=== PATIENT | female | born 1990 | race Caucasian/White ===

== ENCOUNTER 2023-09-22 22:23 | Emergency (ER) | payer OTHER, SELFPAY ==
[2023-09-22 22:28] VITALS: BP 139/95; PULSE 73; RESP 18; TEMP 36.5; O2SAT 96; BMI 27.0
--- NOTE | 2023-09-22 22:35 | ECG_ITS ---
The [facility] Test Date: 2023-09-22 Pat Name: MATTHEW LUNA Department: Room: - Gender: Female [employer]: : 1990 Requested By: Order Number: [id number] Reading MD: LAQUITA ALMANZA Measurements Intervals [place] Rate: 82 P: 70 FL: 170 QRS: 95 QRSD: 102 T: 61 QT: 376 QTc: 415 Interpretive Statements 1100 Sinus rhythm 7102 Moderate right axis deviation 9110 normal ECG No previous ECG available for comparison Electronically Signed On 09-23-2023 11:30:26 EST by LAQUITA ALMANZA
--- NOTE | 2023-09-22 22:35 | XR_ITS ---
The [address] [address] Patient Name: MATTHEW LUNA MRN: [id number] date: 1990 Sex: F Assigned Patient Location: ER Current Patient Location: ER Accession/Order Number: [id number] Exam Date: 09/22/2023 22:40 Report Date: 09/22/2023 23:09 At the request of: LAY MANZO Procedure: XR chest 1V EXAM: XR chest 1V HISTORY: chest pain COMPARISON: None. TECHNIQUE: One view of the chest was obtained. FINDINGS: The cardiac silhouette is normal in size. The lungs are clear. There is no significant pneumothorax or pleural effusion. No acute osseous abnormality is seen. XR/XR chest 1V IMPRESSION: 1. No acute cardiopulmonary abnormality. Electronically authenticated by: Risa BARRIENTOS Date: 09/22/2023 23:09
[2023-09-22 22:53] LABS: Basophils Absolute Auto 0.1 10^3/uL (0.0-0.1); Basophils Percent Auto 0.6 % (0.2-2.0); Eosinophils Absolute Auto 0.2 10^3/uL (0.0-0.7); Eosinophils Percent Auto 2.3 % (0.9-7.0); Hematocrit 35.7 % (36.0-48.0); Hemoglobin 11.9 g/dL (12.0-16.0); Immature Granulocytes Abs Auto 0.04 10^3/uL (0.00-0.03); Immature Granulocytes Pct Auto 0.5 % (0.0-0.5); Lymphocytes Absolute Auto 3.1 10^3/uL (1.2-3.8); Lymphocytes Percent Auto 36.3 % (20.5-60.0); Mean Corpuscular HGB Conc 33.3 g/dL (29.9-35.2); Mean Corpuscular Hemoglobin 30.5 pg (26.7-34.0); Mean Corpuscular Volume 91.5 fL (81.0-99.0); Mean Platelet Volume 9.8 fL (9.5-13.5); Monocytes Absolute Auto 0.7 10^3/uL (0.3-0.8); Neutrophils Absolute Auto 4.5 10^3/uL (1.4-6.5); Neutrophils Percent Auto 52.3 % (43.0-75.0); Platelet Count 295 10^3/uL (150-450); Red Cell Distribution Width 12.8 % (11.0-15.0); White Blood Count 8.6 10^3/uL (4.0-11.0)
[2023-09-22 23:03] LABS: D Dimer <0.19 mg/L FEU (<=0.59)
[2023-09-22] MEDS: KETOROLAC TROMETHAMINE 30 MG/ML VIAL IVP (23:07)
[2023-09-22 23:10] LABS: Anion Gap 11.6; BUN Creatinine Ratio 23.4; Calcium 8.8 mg/dL (8.5-10.1); Chloride 104 mmol/L (98-107); Estimated GFR (African America >60 (>=60); Estimated GFR (Non-African Ame >60 (>=60); Glucose 115 mg/dL (74-106); Potassium 3.6 mmol/L (3.5-5.1); Sodium 139 mmol/L (136-145); Troponin I High Sensitivity 4.9 pg/mL (4.0-51.3)
--- NOTE | 2023-09-22 23:26 | ED_ITS ---
HPI - Chest Pain General Chief Complaint: Chest Pain Stated Complaint: Chest Pain, Left Arm Numbness Time Seen by Provider: 09/22/23 22:34 Source: patient Mode of arrival: walk-in Limitations: no limitations History of Present Illness HPI narrative: Left chest pain - sharp - with numbness radiating into the left arm began a couple of days ago while she was laying down. It has become more constant today. She rated it 4/10 to the nurses. She admitted to come associated shortness of breath. No GI or symptoms. No cough or cold symptoms. No recent injury to the chest. No known activity that might account for the pain. No relief after taking tylenol at home Related Data Home Medications Medication Instructions Recorded Confirmed No Known Home Medications 09/22/23 09/22/23 Allergies Allergy/AdvReac Type Severity Reaction Status Date / Time sulfamethoxazole Allergy Unknown Verified 09/22/23 22:33 [From Bactrim] trimethoprim [From Bactrim] Allergy Unknown Verified 09/22/23 22:33 PFSH PFS Social History Smoking status: Never smoker Exam Narrative Exam Narrative: Nurses notes and vital signs reviewed and patient is not hypoxic. afebrile General: Well-appearing and in no apparent distress. Skin: Warm, dry, no pallor noted. No rash. Head: Normocephalic, atraumatic. Neck: No cervical midline vertebral tenderness or paracervical soft tissue spasm or tenderness. Eye: Pupils are equal, round and EOMI. No scleral icterus. Cardiovascular: Regular Rate and Rhythm without murmur, gallop or rub. Respiratory: No accessory muscle use or respiratory distress. Lungs are clear to auscultation, no wheezing, rales or rhonchi Chest Wall: no tenderness, crepitus or subcutaneous emphysema Back: No midline thoracic or lumbar vertebral tenderness. No left trapezius tenderness Musculoskeletal: normal ROM, no calf or popliteal tenderness, no lower extremity edema/swelling Neurological: A&O x4. No cranial nerve dysfunction observed. No truncal ataxia. Moves all extremities. Sensation intact. Psychiatric: Cooperative and interactive. Normal mood and affect. Constitutional Vital Signs, click to edit/add: Last Vital Signs Temp 97.7 F 09/22/23 22:28 Pulse 73 09/22/23 22:28 Resp 18 09/22/23 22:28 BP 139/95 H 09/22/23 22:28 Pulse Ox 96 09/22/23 22:28 O2 Del Method Room Air 09/22/23 22:28 Course Vital Signs Vital signs: Vital Signs Temperature 97.7 F 09/22/23 22:28 Pulse Rate 73 09/22/23 22:28 Respiratory Rate 18 09/22/23 22:28 Blood Pressure 139/95 H 09/22/23 22:28 Pulse Oximetry 96 09/22/23 22:28 Oxygen Delivery Method Room Air 09/22/23 22:28 Temperature 97.7 F 09/22/23 22:28 Pulse Rate 73 09/22/23 22:28 Respiratory Rate 18 09/22/23 22:28 Blood Pressure 139/95 H 09/22/23 22:28 Pulse Oximetry 96 09/22/23 22:28 Oxygen Delivery Method Room Air 09/22/23 22:28 MDM - Chest Pain MDM Narrative Medical decision making narrative: Patient was placed on quality assurance monitor chassis and EKG obtained. Blood drawn and sent for evaluation. chest x-ray was obtained. The patient's workup was negative including negative d-dimer, normal troponin, normal EKG and negative chest x-ray. Results discussed with the patient. Discussed potential causes fo her paresthesia and gave her reassurance that her chest pain does not appear to be of a worrisome etiology. Discussed NSAID us at home since the toradol decreased her pain. She was given IV Solumedrol before discharge and was encouraged to see her PCP. Lab Data Attestation: I reviewed the patient's lab results. Labs: Lab Results 09/22/23 Range/Units 22:36 WBC 8.6 (4.0-11.0) 10^3/uL RBC 3.90 L (4.20-5.40) 10^6/uL Hgb 11.9 L (12.0-16.0) g/dL Hct 35.7 L (36.0-48.0) % MCV 91.5 (81.0-99.0) fL MCH 30.5 (26.7-34.0) pg MCHC 33.3 (29.9-35.2) g/dL RDW 12.8 (11.0-15.0) % Plt Count 295 (150-450) 10^3/uL MPV 9.8 (9.5-13.5) fL Neut % (Auto) 52.3 (43.0-75.0) % Lymph % (Auto) 36.3 (20.5-60.0) % Starke % (Auto) 8.0 (1.7-12.0) % Eos % (Auto) 2.3 (0.9-7.0) % Baso % (Auto) 0.6 (0.2-2.0) % Neut # (Auto) 4.5 (1.4-6.5) 10^3/uL Lymph # (Auto) 3.1 (1.2-3.8) 10^3/uL Starke # (Auto) 0.7 (0.3-0.8) 10^3/uL Eos # (Auto) 0.2 (0.0-0.7) 10^3/uL Baso # (Auto) 0.1 (0.0-0.1) 10^3/uL Abs Immat Gran (auto) 0.04 H (0.00-0.03) 10^3/uL Imm/Tot Granulo (auto) 0.5 (0.0-0.5) % D-Dimer <0.19 (<=0.59) mg/L FEU Sodium 139 (136-145) mmol/L Potassium 3.6 (3.5-5.1) mmol/L Chloride 104 (98-107) mmol/L Carbon Dioxide 27.0 (21.0-32.0) mmol/L Anion Gap 11.6 BUN 18.0 (7.0-18.0) mg/dL Creatinine 0.77 (0.55-1.02) mg/dL Est GFR ( Amer) >60 (>=60) Est GFR (Non-Af Amer) >60 (>=60) BUN/Creatinine Ratio 23.4 Glucose 115 H (74-106) mg/dL Calcium 8.8 (8.5-10.1) mg/dL Troponin I High Sens 4.9 (4.0-51.3) pg/mL Imaging Data Chest x-ray: Attestation: I have reviewed the pertinent imaging results. Radiologist's impression: Patient Name: MATTHEW LUNA MRN: [facility]:[id number] date: 1990 Sex: F Assigned Patient Location: ER Current Patient Location: ER Accession/Order Number: [id number] Exam Date: 09/22/2023 22:40 Report Date: 09/22/2023 23:09 At the request of: LAY MANZO Procedure: XR chest 1V EXAM: XR chest 1V HISTORY: chest pain COMPARISON: None. TECHNIQUE: One view of the chest was obtained. FINDINGS: The cardiac silhouette is normal in size. The lungs are clear. There is no significant pneumothorax or pleural effusion. No acute osseous abnormality is seen. IMPRESSION: 1. No acute cardiopulmonary abnormality. Electronically authenticated by: Risa BARRIENTOS Date: 09/22/2023 23:09 ECG Data Attestation: I personally reviewed and interpreted this ECG as follows: Interpretation: EKG interpretation: Emergency Department physician interpretation. Normal sinus rhythm at 82bpm. Right axis, normal intervals and no ST segment elevation or depression. Normal EKG Heart Score History: Moderately Suspicious ECG: Normal Age: <45 years Risk Factors: 1 or 2 Risk Factors Troponin: <Normal Limit Total Heart Score Recommendations & Risks:: 2 Discharge Plan Discharge Chief Complaint: Chest Pain Clinical Impression: Paresthesia of left arm, Chest pain Patient Disposition: Home, Self-Care Time of Disposition Decision: 23:40 Prescriptions / Home Meds: No Action No Known Home Medications Instructions: Chest Pain (ED), Paresthesia (ED) Stand Alone Forms: Portal Instructions Referrals: Physician,Non-Staff, MD [Primary Care Provider] - 1 week
[2023-09-22] MEDS: METHYLPREDNISOLONE SOD SUCC PF 125 MG/2 ML VIAL IVP (23:50)
== END 2023-09-22 23:57 | disposition home or self-care (01) ==
PROVIDERS: Emergency Provider Emergency Medicine
DX: R07.9 Chest pain, unspecified (principal); R20.2 Paresthesia of skin
CPT/HCPCS: 36415; 71045; 80048; 84484; 85025; 85378; 93005; 96374; 96375; 99285; J2930